=== PATIENT | female | born 1975 | race Caucasian/White ===

== ENCOUNTER 2016-08-17 01:25 | Inpatient (IN) | payer OTHER ==
[2016-08-17] VITALS (717 sets, daily range): BP systolic 101–127; BP diastolic 62–75; PULSE 74–93; TEMP 97–98.1; O2SAT 76–100
[~2016-08-17] VITALS: Ht 170.2 cm; Wt 68.2 kg
[2016-08-17 02:39] LABS: HYALINE CAST >12 /lpf; PH 5 (5-8); URINE APPEARANCE Cloudy; URINE BACTERIA Rare /hpf; URINE BILIRUBIN Positive (NEGATIVE); URINE BLOOD 2+ (NEGATIVE); URINE COLOR Amber; URINE GLUCOSE Negative (NEGATIVE); URINE KETONE Trace (NEGATIVE); URINE WBC 0-2 /hpf
[2016-08-17 02:45] LABS: MAGNESIUM 1.9 mg/dL (1.6-2.3); PHOSPHOROUS 8.9 mg/dL (2.5-4.5)
[2016-08-17 03:20] LABS: FRACTIONAL EXCRETION OF NA+ 0.3 %
[2016-08-17 03:22] LABS: CREATININE, serum 4.36 mg/dL (0.52-1.25)
[2016-08-17 05:59] LABS: BASO # 0.1 (0.0-0.2); BASO % 0.3 % (0.0-2.0); EOS % 0.2 % (0-4.0); GRAN # 11.6 (1.4-6.5); LYMPH # 1.6 (1.2-3.4); MEAN CELL VOLUME 100 fl (80.0-100.0); MEAN CORPUSCULAR HEMOGLOBIN 35 pg (27.0-31.0); MEAN CORPUSCULAR HGB CONC 35 g/dl (33.0-37.0); MEAN PLATELET VOLUME 11.1 fl (7.4-10.4); MONO # 1.2 (0.1-0.6); MONO % 8.2 % (1.7-9.3); PLATELET COUNT 173 K/mm3 (130-400); RED BLOOD COUNT 3.45 M/mm3 (4.10-5.30); REDCELL DISTRIBUTION WIDTH-CV 11.9 % (11.5-14.5); WHITE BLOOD COUNT 14.6 K/mm3 (4.8-10.8)
[2016-08-17 06:06] LABS: ADJUSTED CALCIUM 8.4 mg/dL (8.4-10.2); ALBUMIN 3.9 gm/dL (3.5-5.0); BILIRUBIN,TOTAL 1.1 mg/dL (0.0-1.0); CALCIUM 8.3 mg/dL (8.4-10.2); CREATININE, serum 3.54 mg/dL (0.52-1.25); HEMATOCRIT 34.4 % (37.0-47.0); POTASSIUM 3.1 mmol/L (3.4-5.0); TOTAL PROTEIN 6.5 gm/dL (6.4-8.2)
[2016-08-17 11:52] LABS: HYALINE CAST >12 /lpf; PH 5 (5-8); URINE APPEARANCE Cloudy; URINE BACTERIA Rare /hpf; URINE BILIRUBIN Negative (NEGATIVE); URINE BLOOD 3+ (NEGATIVE); URINE COLOR Yellow; URINE GLUCOSE Negative (NEGATIVE); URINE KETONE Trace (NEGATIVE); URINE UROBILINOGEN Negative (NEGATIVE); URINE WBC >50 /hpf
[2016-08-17 13:07] LABS: URINE PROTEIN:CREAT RATIO 0.3 (0.00-0.14)
[2016-08-18 03:53] VITALS: BP 114/65; PULSE 71; TEMP 98.6
[2016-08-18 07:29] VITALS: BP 114/74; PULSE 74; TEMP 97.7
[2016-08-18 11:13] VITALS: BP 125/71; PULSE 91; TEMP 98.1
[2016-08-18 12:01] LABS: CALCIUM 7.9 mg/dL (8.4-10.2); CREATININE, serum 0.76 mg/dL (0.52-1.25); POTASSIUM 3.2 mmol/L (3.4-5.0)
[2016-08-18 15:17] VITALS: BP 122/71; PULSE 97; TEMP 98.2
[2016-08-18] MEDS ORDERED: LEVAQUIN 750MG750 M1 PO (15:22)
[2016-08-18] MEDS ORDERED: TYLENOL 325MG325 MG PO (15:22)
[2016-08-18] MEDS ORDERED: THIAMINE 1100 MG/TAB PO (15:23)
[2016-08-18] MEDS ORDERED: FOLIC ACID 11 MG/TA1 PO (15:23)
[2016-08-18] MEDS ORDERED: PROAIR HFA0.09 MG/AC IH (15:23)
== END 2016-08-18 16:52 | disposition home or self-care (01) | DRG 682 ==
LOC: ICU 01:25 → MEDICAL 01:37 → ICU 01:37 → MEDICAL 13:59
PROVIDERS: Internal Medicine; Nurse Practitioner Family
DX: N17.9 Acute kidney failure, unspecified (principal); J18.9 Pneumonia, unspecified organism; M62.82 Rhabdomyolysis; F15.10 Other stimulant abuse, uncomplicated; R41.82 Altered mental status, unspecified; E86.0 Dehydration; E87.6 Hypokalemia
CPT/HCPCS: 90791-AI; 99239; J0456; J0696; J2930; J3475; J7030; J7050